=== PATIENT | female | born 1965 | race Asian ===

== ENCOUNTER 2017-10-27 11:26 | Emergency (ER) | payer SELFPAY ==
[~2017-10-27] VITALS: Ht 160 cm; Wt 51.3 kg
[2017-10-27 11:57] VITALS: BP 123/84
[2017-10-27] MEDS ORDERED: TYLENOL EXTRA500 MG ORAL (12:13)
[2017-10-27] MEDS ORDERED: PROMETHAZINE-C118 M1 ORAL (12:13)
[2017-10-27] MEDS ORDERED: ACYCLOVIR200 MG ORAL (12:13)
--- NOTE | 2017-10-27 12:13 | Emergency Room Report ---
History of Present Illness General Chief Complaint: Upper Respiratory Illness Source: Patient Present Illness HPI 52-year-old female patient presents to ER complaining of cough 1 week. Patient reports history of fever 1 week ago to 100 at that time. Patient denies acute fever. Patient reports dry cough, no hemoptysis. Patient denies chest pain, shortness of breath, nausea vomiting, diarrhea. Patient is also complaining of a fever blister on her lip. Patient reports she usually gets these. Patient wants no fevers medication that she can take for treatment. Patient denies history of asthma or cardiovascular disease. she reports taking NyQuil for cough symptoms with cough is still bad, worse at night. Patient reports that she usually takes stronger cough medicine for resolution of symptoms. denies other symptoms. Patient History Past Medical History: see triage record Last Menstrual Period: [place] Now: No Reviewed Nursing Documentation: PMH: Agreed; PSxH: Agreed Nursing Documentation-PMH Hx Hypertension: Yes - not taking any meds Review of Systems All Other Systems: negative except mentioned in HPI Physical Exam Vital Signs Date Time Temp Pulse Resp B/P (MAP) Pulse Ox O2 Delivery O2 Flow Rate FiO2 10/27/17 11:47 98.3 86 18 123/84 97 Room Air 98.2 Sp02 EP Interpretation: reviewed, normal General Appearance: well appearing, no apparent distress, alert, GCS 15, non- toxic Head: normocephalic, atraumatic Eyes: bilateral eye normal inspection, bilateral eye PERRL ENT: hearing grossly normal, normal pharynx, no angioedema, normal voice, TMs + canals normal, uvula midline, moist mucus membranes, other - upper lip, medial : fever blister <1cm, no blood, no drainage; uvula midline, no tonsillar exudates Neck: full range of motion Respiratory: lungs clear, normal breath sounds, no rhonchi, no respiratory distress, no accessory muscle use, no wheezing, speaking full sentences Cardiovascular #1: regular rate, rhythm, no edema Musculoskeletal: back normal, digits/nails normal, gait/station normal, normal range of motion, non-tender Neurologic: alert, oriented x3, responsive, motor strength/tone normal, sensory intact Psychiatric: mood/affect normal Skin: no rash Lymphatic: no adenopathy Medical Decision Making PA Attestation Dr. Anthony is my supervising Physician whom patient management has been discussed with. Diagnostic Impression: Primary Impression: Upper respiratory infection Additional Impression: Cold sore ER Course Pt presents to ED c/o cough and fever blister on lip. DDX considered but are not limited to influenza, viral URI, pneumonia, strep throat, rhinitis, sinusitis, otitis media. Low suspicion for PE per well's criteria. Low suspicion for pneumonia, will not order CXR at this time. VITAL SIGNS are WNL, patient is afebrile CURES report negative ER COURSE: Lungs clear to auscultation, no wheezes, rhonci or rales. Oropharynx clear, no tonsillar exudates or pharyngeal erythema. Likely viral etiology of symptoms. Symptomatic treatment. Followup with PCP for further treatment and/or referral as needed. lesion on mouth consistent with cold sore, patient reports history of having these. Informed patient that cold sores can appear during times of increased stress and or compromise such as sickness. informed patient of [id number] methods to treat symptoms. Will provide treatment. DISCHARGE: -Rx given for Acyclovir -Rx given for Tylenol/Acetaminophen -Rx given for Promethazine with codeine syrup for cough sx. At this time pt is stable for d/c to home. Patient is resting comfortably, in no acute distress, nontoxic appearing. Patient to take medications as instructed Will provide with patient care instructions and any necessary prescriptions. Care plan and follow-up instructions provided. Patient instructed to follow-up with primary care provider in 3 - 5 days. Patient questions asked and answered. Patient reports understanding and agreement to treatment plan. ER precautions given. Patient instructed to return to ER immediately for any new or worsening of symptoms including but not limited to increasing SOB, persistent fever, intractable vomiting. - Please note that this Emergency Department Report was dictated using [employer] set up operator technology software, occasionally this can lead to erroneous entry secondary to interpretation by the dictation equipment. Last Vital Signs Date Time Temp Pulse Resp B/P (MAP) Pulse Ox O2 Delivery O2 Flow Rate FiO2 10/27/17 11:47 98.3 86 18 123/84 97 Room Air 98.2 Disposition: HOME, SELF-CARE Condition: Stable Scripts Acyclovir* (ACYCLOVIR*) 200 Mg Capsule 200 MG ORAL FIVE TIMES A DAY for 7 Days, #35 CAP Prov: David Gomez 10/27/17 Acetaminophen* (TYLENOL EXTRA STRENGTH*) 500 Mg Tablet 500 MG ORAL Q8H PRN for Prn Headache/Temp > 101, #30 TAB 0 Refills Prov: David Gomez 10/27/17 Codeine/Promethazine Hcl* (PROMETHAZINE-CODEINE SYRUP*) 118 Ml Syrup 5 ML ORAL Q6H PRN for For Cough, #118 ML 0 Refills Prov: Davdi Gomez 10/27/17 Patient Instructions: Cold Sore, [id number], Upper Respiratory Infection, Adult Additional Instructions: Followup with primary care provider in 3 -5 days. Take medications as directed. [id number] Abreva will help reduce length of fever blister symptoms.. Patient questions asked and answered. ER precautions given, patient instructed to return to ER immediately for any new or worsening of symptoms, including but not limited to chest pain, shortness of breath, intractable vomiting. David Gomez Oct 27, 2017 12:13
[2017-10-27 12:22] VITALS: BP 123/84
== END 2017-10-27 12:57 | disposition home or self-care (01) ==
LOC: EMR 12:28
DX: J06.9 Acute upper respiratory infection, unspecified (principal); B00.1 Herpesviral vesicular dermatitis; I10 Essential (primary) hypertension
CPT/HCPCS: 99284